=== PATIENT | female | born 1990 | race Caucasian/White ===

== ENCOUNTER 2017-10-03 05:30 | Inpatient (IN) | payer MEDICAID ==
--- NOTE | 2017-10-02 23:44 | GHP ---
[f rep st] PREOP HISTORY AND PHYSICAL DATE OF ADMISSION: 10/03/2017 HISTORY UPON ADMISSION: The patient is a 27-year-old, G1, P0, at 39 weeks' gestation with estimated due date of 10/10/2017, who is presenting for a scheduled primary section due to persistent breech position. The patient has had a persistent breech position since 30 wks. The patient declined external cephalic version. The patient is not having any contractions , bag of water intact, no bleeding. The patient reports good movement. The patient's has been complicated by gestational diabetes with poor blood sugar control until very recently. The patient has been managed by an Endocrine office in [place], and primarily the patient has been on long-acting insulin at night, steadily increasing. The patient recently initiated short- acting insulin before dinner. The patient has had serial ultrasounds, watching growth. There has been reassuring fluid level, and growth has ranged from the 25th to 46th percentile. Primary section has been reviewed with the patient, and risks and benefits discussed. The patient has signed the consent form. CARE: The patient has been with [facility] since 9 weeks' gestation. The patient had a history of anxiety prior to the , but did not have significant worsening through the . The patient's initial ultrasound at 19 weeks did not show all the anatomy adequately, and therefore, this was repeated at 22 weeks, and everything appeared normal. The placenta is left lateral. The patient's screening Glucola was abnormal, and a 3 -hour GTT was abnormal for 2 out of 3 values. Again, the patient has been increased on nighttime NPH and has most recently been on 27 units. She initially added 20 units regular before dinner. The baby was first noted to be breech at 30 weeks' gestation and has remained so throughout the . ALEJANDRA was initially low normal, but had improved to normal range. The patient began twice weekly NST monitoring at 36 weeks' gestation, and this has been reassuring. LABORATORY DATA: Maternal blood type O positive with negative antibody screen. RPR nonreactive. Rubella immune. Hepatitis B surface antigen negative. HIV negative. Standard genetic testing panel was negative. MSAFP is negative. Urinalysis and culture were both negative. Pap smear normal. Gonorrhea and chlamydia negative. Verifi testing was normal. Hematocrit at the lowest was 38%. 3-hour GTT abnormal. GBS culture was negative. PAST MEDICAL HISTORY: Anxiety, but mild and not medicated. History of frequent UTIs in the past, but saw urologist, and workup was negative. FAMILY HISTORY: Depression, a brother who of a suicide, and a sister with depression. ALLERGIES: Sulfa causes rash. CURRENT MEDICATIONS: vitamin, and occasional Tylenol. SOCIAL HISTORY: The patient is single. Has a supportive partner. The patient is a nonsmoker. No alcohol or drug use. 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 PAST SURGICAL HISTORY: Negative. PHYSICAL EXAMINATION: GENERAL: Upon preop, the patient is a well-developed, well-nourished white female in no physical distress. VITAL SIGNS: Patient is clinically afebrile. Blood pressure 122/72. Weight 216 pounds. HEENT: No thyromegaly, no adenopathy. The oropharynx is clear. LUNGS: Clear to auscultation bilaterally. CARDIOVASCULAR: Regular rate and rhythm. ABDOMEN: Gravid with fundal height of 38 cm. heart tones in the 150s with a reactive NST. PELVIC: Deferred. EXTREMITIES: Nontender with mild edema. ASSESSMENT: Intrauterine at 40 weeks' gestation, eusebia breech, gestational diabetes A2, history of anxiety. PLAN: Will proceed with scheduled primary section on 10/03/2017. The patient will receive preoperative antibiotics. /[id number]/MODL MTDD
--- NOTE | 2017-10-03 06:20 | PDHPUP ---
History & Physical Update H&P update statement: This history and physical update is based on an assessment of the patient which was completed after admission or registration (within 24 hours), but prior to the surgery/procedure.
[2017-10-03] MEDS ORDERED: ceFAZolin 2 GM/DEXTROSE 100 ML IV ONE (06:27)
[2017-10-03] MEDS ORDERED: LR 500 ML IV ONE (06:27)
[2017-10-03] MEDS ORDERED: CITRIC ACID/SODIUM CITRATE 30 ML UDCUP PO ONE (06:27)
[2017-10-03 06:39] LABS: PLATELET COUNT 188 10^3/uL (150-400)
[2017-10-03] MEDS ORDERED: ceFAZolin 2 GM/SWFI 2 GM/20 ML SYR IVP ONE (06:45)
[2017-10-03] MEDS ORDERED: fentaNYL 100 MCG/2 ML INJ ONE (07:19)
[2017-10-03] MEDS ORDERED: morphINE PF 5 MG/10 ML INJ ONE (07:20)
[2017-10-03] MEDS ORDERED: ONDANSETRON 4 MG/2 ML VIAL IVP PRN (09:04)
[2017-10-03] MEDS ORDERED: NALOXONE HCL 0.4 MG/ML INJ IVP PRN (09:04)
--- NOTE | 2017-10-03 09:07 | POSTANESTH ---
Post Anesthetic Evaluation Cardiovascular Status: Normal, Stable Respiratory Status: Normal, Stable Level of Consciousness/Mental Status: Can Participate in Eval Pain Control: Adequate, Prn Tx Ordered Nausea/Vomiting Control: Adequate, Prn Tx Ordered Complications Possibly Related to Anesthesia: None Noted
--- NOTE | 2017-10-03 09:07 | PDANEPAE ---
ANE History of Present Illness here for CS for breech ANE Past Medical History - Cardiovascular History Hx Hypertension: No Hx Arrhythmias: No Hx Chest Pain: No Hx Coronary Artery / Peripheral Vascular Disease: No Hx CHF / Valvular Disease: No Hx Palpitations: No - Pulmonary History Hx COPD: No Hx Asthma/Reactive Airway Disease: No Hx Recent Upper Respiratory Infection: No Hx Oxygen in Use at Home: No Hx Sleep Apnea: No Sleep Apnea Screening Result - Last Documented: Negative - Neurologic History Hx Cerebrovascular Accident: No Hx Seizures: No Hx Dementia: No - Endocrine History Endocrine History Comment: gestational DM - Renal History Hx Renal Disorders: No - Liver History Hx Hepatic Disorders: No - Neurological & Psychiatric Hx Hx Neurological and Psychiatric Disorders: No - Cancer History Hx Cancer: No ANE Review of Systems Review of systems is: negative Review of Systems: - Exercise capacity Exercise capacity: >=4 METS ANE Patient History - Allergies Allergies/Adverse Reactions: Sulfa (Sulfonamide Antibiotics) Allergy (Verified 10/03/17 06:23) Rash - Home Medications Home medications: home medication list seen and reviewed Home Medications: Vit27&Calcium/Iron/FA [] 1 tab DAILY 10/03/17 [Last Taken 10/02 11:00] - NPO status NPO Status: no food or drink >8 hours NPO Since - Liquids (Date): 10/02/17 NPO Since - Liquids (Time): 00:00 NPO Since - Solids (Date): 10/02/17 NPO Since - Solids (Time): 19:30 - Anes Hx Anes Hx: no prior problems ANE Labs/Vital Signs - Labs Result Diagrams: 10/03/17 06:15 - Vital Signs Vital Signs: reviewed preoperatively; see RN documention for details Height: 162.56 cm Weight: 97.976 kg ANE Physical Exam - Airway Neck exam: FROM Mallampati Score: Class 1 - Pulmonary Pulmonary: no respiratory distress - Cardiovascular Cardiovascular: regular rate and rhythym - ASA Status ASA Status: II ANE Anesthesia Plan Anesthesia Plan: spinal
[2017-10-03] MEDS ORDERED: MAGNESIUM HYDROXIDE 30 ML UDCUP PO PRN (09:24)
[2017-10-03] MEDS ORDERED: BISACODYL 10 MG SUPP PR PRN (09:24)
[2017-10-03] MEDS ORDERED: POLYETHYLENE GLYCOL 3350 17 GM PKT PO PRN (09:24)
[2017-10-03] MEDS ORDERED: LACTULOSE 20 GM/30 ML UDCUP PO PRN (09:24)
--- NOTE | 2017-10-03 09:29 | POSTOPPROG ---
Post Op Note Date of Operation: 10/03/17 Surgeon: Kellee Marie Time Cycle Operator: Milvia Banks SA Anesthesiologist: Pacheco Patton MD Anesthesia: Spinal Pre-op Diagnosis: IUP at 39 wks, GDM - A2, eusebia breech Post-op Diagnosis: same, delivered Indication: G1, persistent breech since 30 wks, decl ECV, poor glucose control w /insuli Procedure: primary section Findings: nl ut,ov, tubes. clear fluid. minute to deliver head with upward traction Inf/Abcess present in the surg proc area at time of surgery?: No Depth: Organ Space EBL: 500-1000 (1000) Total fluids administered: 1800 Complications: none, cord gases taken Specimen(s): none
--- NOTE | 2017-10-03 09:45 | OBDEL ---
Info Type: Primary Presentation at Delivery: Breech L&D Analgesia/Anesthesia Type: Spinal (with duramorph) GBS+: No - Infant Care Provider Prepress Proofer/ENVIRONMENTAL FIELD SERVICES TECHNICIAN: Jenniffer Suazo (ENVIRONMENTAL FIELD SERVICES TECHNICIAN) Indications for Delivery: Diabetes Gestational Poorly Controlled Vaginal Delivery - Labor and Delivery Cord Gases: Cord Gases Cord Blood PCO2 49.3 mmHg (37-60) 10/03/17 08:14 Cord Base Excess -5.2 mEq/L (-13.6--3.2) 10/03/17 08:14 Cord ABG pH 7.27 (7.10-7.37) 10/03/17 08:14 Cord VBG pH 7.18 (7.20-7.42) L 10/03/17 08:14 Operative Report - Delivery Pre-op Diagnoses: IUP at 39 wks, breech, GDM-A2 Post-op Diagnoses: same, delivered History of Prior Section: No Nulliparous Prior to Delivery: Yes Indications for Current Section: Breech Procedure: Scheduled, Low Transverse Surgeon: Kellee Marie Commercial Intern: Milvia Banks Anesthesiologist: Pacheco Patton Findings: nl ut, tubes, ov. clear fluid. eusebia breech, 1 min for del of head. vigorous after delivery IV Fluid (ml): 1,800 EBL: 1000 Cord Gases: Cord Gases Cord Blood PCO2 49.3 mmHg (37-60) 10/03/17 08:14 Cord Base Excess -5.2 mEq/L (-13.6--3.2) 10/03/17 08:14 Cord ABG pH 7.27 (7.10-7.37) 10/03/17 08:14 Cord VBG pH 7.18 (7.20-7.42) L 10/03/17 08:14 Data THIEN: 10/10/17 Gestational Age: 39 week(s) and 0 day(s) Edge Delivery Date: 10/03/17 Delivery Time: 08:10 Sex of : Female (Suzan Reinoso) Score (1 Min): 8 Score (5 Min): 9 ICD10 Worksheet Patient Problems: Problems Problem Status Onset Gestational diabetes Acute delivery delivered Acute Breech presentation Acute
[2017-10-03] MEDS: LR 1,000 ML IV SCH ×2 (10:45→18:47)
[2017-10-03] MEDS: KETOROLAC 30 MG/1 ML SDV IVP SCH ×2 (11:56→18:45)
--- NOTE | 2017-10-03 13:26 | GOP ---
[f rep st] OPERATIVE REPORT DATE OF OPERATION: 10/03/2017 SURGEON: Kellee Marie MD ASH COLLECTOR: BEN Wallis ANESTHESIA: Spinal anesthetic with Duramorph placement for postoperative pain management. ANESTHESIOLOGIST: Pacheco Patton MD PREOPERATIVE DIAGNOSIS: Intrauterine at 39 weeks, gestational diabetic A2, eusebia breech. POSTOPERATIVE DIAGNOSIS: Intrauterine at 39 weeks, gestational diabetic A2, eusebia breech, delivered. PROCEDURE PERFORMED: Primary delivery. FINDINGS: INDICATIONS: The patient is a 27-year-old, G1, P0, at 39 weeks gestation, scheduled for primary due to persistent breech presentation since approximately 30 weeks. Patient declined external cephalic version. The patient's has been complicated by gestational diabetes and the patient has had sugar management through the [facility] office. The patient has had poor glucose control until recently. She has only been on NPH at night with steadily increasing levels, and recently was advised to add Regular Insulin before dinner. Serial ultrasounds have been done and the baby' s estimated weight has varied between 25 and 49 percentile. Fluid level has been normal. The patient was advised as to the risks and benefits of delivery and the consent form signed. DESCRIPTION OF PROCEDURE: The patient was taken to the operating room, where following satisfactory spinal anesthesia, the patient was placed in supine position with right hip displacement. A Brumfield catheter was placed within the bladder and draining clear urine. The patient had on SCDs on her lower extremities for DVT prophylaxis. The patient received a dose of antibiotics preoperatively. The patient's skin was prepped and the patient draped in usual sterile manner for abdominal procedures. A Pfannenstiel incision was made in the low abdomen and extended sharply down to the level of the fascia. The fascia was incised in the midline and extended sharply bilaterally. The fascia was elevated off the underlying rectus muscles superiorly and inferiorly. The rectus muscles were in the midline and gently pulled to each side. The parietal perineum was entered easily and also pulled to the sides. The visceral perineum was reflected off the lower uterine segment sharply to developed the bladder flap. Hysterotomy was made in the low-transverse segment and extended sharply bilaterally with bandage scissors. Upon amniotomy, there was clear fluid noted. The breech was noted right at the hysterotomy, and with fundal pressure, the hips and pelvis were delivered through the hysterotomy without any problems. Continued fundal pressure brought the baby up past the knees, and each leg was flexed and extended out through the incision without any problems. Continued fundal pressure and direction of the baby with the baby wrapped with a moist towel, brought the baby past the level of the scapula. The arms were flexed and rotated across the chest and delivered through the hysterotomy with rotation of the body. The baby then was elevated for delivery of the head. There was approximately a minute to deliver the head atraumatically. The baby was bulb suctioned after delivery and the cord was clamped and cut, and the baby was handed off the field for evaluation with the nurse practitioner. The baby was vigorous after delivery. An additional section of cord blood was obtained for gases. The placenta was manually extracted off the anterior of the uterus intact. There appeared to be a succinturate lobe on the placental surface and it was removed in entirety. The uterine tone returned quickly. The uterus was externalized for closure. The interior was wiped with a laparotomy pad to ensure there were no retained membranes. The incision edges were inspected and there were no extensions. The incision was closed with a running interlocking layer of 0 Vicryl followed by an imbricating stitch of the same suture. This provided good hemostasis. Pressure was applied to this area while inspection was performed. The posterior cul-de-sac was irrigated and blood clots removed. The uterus, tubes and ovaries appeared normal. The left fundal portion of the uterus was thinner , but tone returned well in this area. An additional inspection was made in the lower uterine segment and there was good hemostasis of the incision. The uterus was replaced within the abdominal cavity and each pelvic gutter was irrigated and suctioned for blood clots. One final inspection in the lower uterine segment was made and there was good hemostasis. Bovie cautery was used on small areas of capillary bleeding. The visceral peritoneal edge was hemostatic. The rectus muscles were inspected and they were hemostatic. The rectus muscles were reapproximated in the midline with a horizontal mattress type stitch of 3-0 Vicryl. The fascia then was closed with a running layer of 0 Vicryl. Wiley fascia was closed with a running layer of 3-0 Vicryl. Subcutaneous tissue was irrigated and Bovie cautery used where needed. Subcuticular skin edge was closed with a running layer of 4-0 Vicryl. Mastisol and Steri-Strips were applied over the incision and then Telfa and 4x4s were used for a dressing. The uterine fundus was massaged and blood clots allowed to escape vaginally. There was minimal bleeding. Brumfield catheter continued to drain clear urine. The patient tolerated the procedure well, was taken out of the operating room and taken to the recovery room in stable condition. Total blood loss estimated at 1000 mL. IV fluids were 1800 mL. The baby was delivered at 0810 hours with Apgars 8 and 9, a viable female named Suzan. /[id number]/MODL MTDD
--- NOTE | 2017-10-03 17:44 | OBPP ---
Progress Note Assessment/Plan: Assessment: POD 1/2 s/p primary c/s - breech PT SEEN APPROX NOON - NOTE WRITTEN LATE GDM - A2 Plan: routine care 10/03/17 17:40 Subjective/ Course: 10/03/17 17:44 Pt doing well. Baby has been latching well. no pain. no nausea. sitting up BF when seen. Just itchy - bld has been light. mancia in place. ben reg water Objective: 10/03/17 06:15 Patient ABO/Rh O POSITIVE 10/03/17 06:15 Temp Pulse Resp BP Pulse Ox 36.3 C 81 17 110/75 95 10/03/17 15:00 10/03/17 15:00 10/03/17 15:00 10/03/17 15:00 10/03/17 15:00 Uterine Position/Fundal Height: At Umbilicus Uterine Tone: Firm Physical Exam - Physical Exam Abdomen: non-tender, soft, other (FF at umb, bandage CDI) Extremities: non-tender, pedal edema (minimal) Skin: normal color, warm/dry Neuro/Psych: alert, normal mood/affect
[2017-10-04] MEDS: SENNOSIDES/DOCUSATE SODIUM TAB PO SCH ×4 (00:53→20:05)
[2017-10-04] MEDS: KETOROLAC 30 MG/1 ML SDV IVP SCH ×2 (00:54→07:45)
[2017-10-04] MEDS: HYDROCODONE/APAP 5/325 TAB PO PRN ×5 (01:49→23:28)
--- NOTE | 2017-10-04 12:38 | OBPP ---
Progress Note Assessment/Plan: Assessment: 27yo s/p Primary C/s (breech) POD#1 anemia Plan: routine post op care start PO iron QD ambulate/void increase water intake cont plan d/c in 24-48 hours 10/04/17 12:49 10/04/17 12:53 Subjective/ Course: 10/03/17 17:44 Pt doing well. Baby has been latching well. no pain. no nausea. sitting up BF when seen. Just itchy - bld has been light. mancia in place. ben reg water 10/04/17 12:50 Patient doing well. She denies any severe pain or heavy bleeding. She is ambulating without difficulty. She has not voided yet, Mancia was removed a couple hours ago. We discussed things to promote void. She is breast-feeding without difficulty. FOB at bedside and supportive. Objective: 10/04/17 02:00 Patient ABO/Rh O POSITIVE 10/03/17 06:15 Temp Pulse Resp BP Pulse Ox 37.1 C 98 16 120/82 H 94 10/04/17 05:56 10/04/17 05:56 10/04/17 05:56 10/04/17 05:56 10/04/17 05:56 Uterine Position/Fundal Height: Umbilicus -1, Midline Uterine Tone: Firm Physical Exam - Physical Exam Neck: supple Respiratory: lungs clear, normal breath sounds Cardiac/Chest: regular rate, rhythm Abdomen: non-tender, soft, flatus, incision (C/D/I) Skin: normal color, warm/dry Neuro/Psych: no motor/sensory deficits, alert, normal mood/affect, oriented x 3
[2017-10-04] MEDS: IBUPROFEN 600 MG TAB PO PRN ×2 (13:49→20:05)
[2017-10-05] MEDS: HYDROCODONE/APAP 5/325 TAB PO PRN ×5 (02:29→20:33)
[2017-10-05] MEDS: IBUPROFEN 600 MG TAB PO PRN ×4 (02:29→22:23)
[2017-10-05] MEDS: IRON POLYSAC/IRON HEME 28 MG TAB PO SCH (09:31)
[2017-10-05] MEDS: SENNOSIDES/DOCUSATE SODIUM TAB PO SCH ×2 (09:31→23:11)
[2017-10-05 17:58] VITALS: RESP 18
--- NOTE | 2017-10-05 18:22 | OBPP ---
Progress Note Assessment/Plan: Assessment: POD 2 s/p primary c/s - breech GDM - A2 Plan: routine care 10/03/17 17:40 10/05/17 18:19 Subjective/ Course: 10/03/17 17:44 Pt doing well. Baby has been latching well. no pain. no nausea. sitting up BF when seen. Just itchy - bld has been light. mancia in place. ben reg water 10/04/17 12:50 Patient doing well. She denies any severe pain or heavy bleeding. She is ambulating without difficulty. She has not voided yet, Mancia was removed a couple hours ago. We discussed things to promote void. She is breast-feeding without difficulty. FOB at bedside and supportive. 10/05/17 18:19 Pt glad for help with - baby's latch is improving - was shallow and pt 's nipples very tender and bruised - using gel pads and lanolin. improving. mild nausea after iron but resolved. urinating fine. pain controlled well with [place]/ibu. no BM yet. amb well. Objective: 10/04/17 02:00 Patient ABO/Rh O POSITIVE 10/03/17 06:15 Temp Pulse Resp BP Pulse Ox 36.6 C 78 18 126/85 H 95 10/05/17 16:57 10/05/17 16:57 10/05/17 16:57 10/05/17 16:57 10/05/17 16:57 Uterine Position/Fundal Height: Umbilicus -1 Uterine Tone: Firm Physical Exam - Physical Exam Abdomen: non-tender, soft, other (FF at umb -1, lochia scant, fine rash on abd in distribution of adhesive drape from surgery - non symptomatic) Extremities: non-tender, pedal edema (minimal) Skin: normal color, warm/dry Neuro/Psych: alert, normal mood/affect
[2017-10-06] MEDS: IBUPROFEN 600 MG TAB PO PRN ×2 (04:17→10:49)
[2017-10-06] MEDS: IRON POLYSAC/IRON HEME 28 MG TAB PO SCH (08:56)
[2017-10-06] MEDS: SENNOSIDES/DOCUSATE SODIUM TAB PO SCH (08:56)
[2017-10-06] MEDS: HYDROCODONE/APAP 5/325 TAB PO PRN (08:56)
[2017-10-06 09:27] VITALS: BP 127/86; PULSE 85; TEMP 98.3; O2SAT 96
--- NOTE | 2017-10-06 10:50 | OBPP ---
Progress Note Assessment/Plan: Assessment:nipples broken down. Scab to both. apno lanolin ff@u scant rubra lochia incision approximated no ss of infection, ss in place + gas + void elevated bp anemic Plan: discharge to home with instructions depression, ss infection, bleeding pattern over the next 6 weeks pericare, rest, walking no routine exercise, pain management, ways to assist with breakdown, elevated bp fu Friday 2 weeks 4 weeks and 6 weeks pelvic rest, handwashing, contraception 10/06/17 10:38 Subjective/ Course: 10/03/17 17:44 Pt doing well. Baby has been latching well. no pain. no nausea. sitting up BF when seen. Just itchy - bld has been light. mancia in place. ben reg water 10/04/17 12:50 Patient doing well. She denies any severe pain or heavy bleeding. She is ambulating without difficulty. She has not voided yet, Mancia was removed a couple hours ago. We discussed things to promote void. She is breast-feeding without difficulty. FOB at bedside and supportive. 10/05/17 18:19 Pt glad for help with - baby's latch is improving - was shallow and pt 's nipples very tender and bruised - using gel pads and lanolin. improving. mild nausea after iron but resolved. urinating fine. pain controlled well with [place]/ibu. no BM yet. amb well. 10/06/17 10:37 Doing well denies difficulties. States beginning to go better. " I think my milk is in" Pain fairly well managed. Objective: 10/04/17 02:00 Patient ABO/Rh O POSITIVE 10/03/17 06:15 Temp Pulse Resp BP Pulse Ox 36.8 C 85 18 127/86 H 96 10/06/17 08:30 10/06/17 08:30 10/06/17 08:30 10/06/17 08:30 10/06/17 08:30 Uterine Position/Fundal Height: At Umbilicus Uterine Tone: Firm Physical Exam - Physical Exam General Appearance: WD/WN, alert, no apparent distress Respiratory: chest non-tender, lungs clear, normal breath sounds Cardiac/Chest: regular rate, rhythm Abdomen: normal bowel sounds Extremities: normal range of motion, Alan's sign (negative bilaterally) DTR- Lower Extremities: Knee (R): 1+, Knee (L): 1+ (no clonus) Skin: normal color, warm/dry Neuro/Psych: no motor/sensory deficits, alert, normal mood/affect, oriented x 3
--- NOTE | 2017-10-06 10:57 | OBGCSDC ---
General Delivery Information - General Info : 1 Para: 1 Abortions: 0 Type: Primary L&D Analgesia/Anesthesia Type: Spinal Admission Date: 10/03/17 Labs: Patient ABO/Rh O POSITIVE 10/03/17 06:15 Hct 35.0 % (38.0-47.0) L 10/04/17 02:00 - Hospital Course Antepartum: routine care with [facility]. WNL care. 10/06/17 10:53 G!PO routine care with [facility] since early . No history other than patient breech. 10/06/17 10:56 : 10/03/17 17:44 Pt doing well. Baby has been latching well. no pain. no nausea. sitting up BF when seen. Just itchy - bld has been light. mancia in place. ben reg water 10/04/17 12:50 Patient doing well. She denies any severe pain or heavy bleeding. She is ambulating without difficulty. She has not voided yet, Mancia was removed a couple hours ago. We discussed things to promote void. She is breast-feeding without difficulty. FOB at bedside and supportive. 10/05/17 18:19 Pt glad for help with - baby's latch is improving - was shallow and pt 's nipples very tender and bruised - using gel pads and lanolin. improving. mild nausea after iron but resolved. urinating fine. pain controlled well with [place]/ibu. no BM yet. amb well. 10/06/17 10:37 Doing well denies difficulties. States beginning to go better. " I think my milk is in" Pain fairly well managed. - Delivery Providers Surgeon: Kellee Marie Drone Software Development Engineer: Milvia Banks Anesthesiologist: Pacheco Patton - Delivery Indications for Current Section: Breech Surgical Procedures: Scheduled, Low Transverse EBL: 1000 [place] Data THIEN: 10/10/17 Gestational Age: 39 week(s) and 3 day(s) Edge Delivery Date: 10/03/17 Delivery Time: 08:10 Sex of Infant: Female Score (1 Min): 8 Score (5 Min): 9 Discharge Information - Discharge Information Condition: Good Instruction/Follow Up: Two Weeks, Four Weeks, Six Weeks (early visit on friday for a BP check)
== END 2017-10-06 14:15 | disposition home or self-care (01) | DRG 766 ==
LOC: FLD 05:30 → FOB 11:47
PROVIDERS: ADMIT Obstetrics & Gynecology; ATTEND Obstetrics & Gynecology
PROC: 10D00Z1 Extraction of Products of Conception, Low, Open Approach (ICD-10-PCS; principal; 2017-10-03)
DX: O32.1XX0 Maternal care for breech presentation, not applicable or unspecified (principal); O24.414 Gestational diabetes mellitus in pregnancy, insulin controlled; Z3A.39 39 weeks gestation of pregnancy; Z37.0 Single live birth
CPT/HCPCS: J0690; J1200; J1885; J2274; J3010

== ENCOUNTER 2018-01-20 09:46 | Observation (INO) | payer MEDICAID ==
[2018-01-20] MEDS ORDERED: ONDANSETRON 4 MG/2 ML VIAL ONE ×2 (10:57→16:17)
[2018-01-20] MEDS ORDERED: ONDANSETRON 4 MG/2 ML VIAL IVP ONE (11:01)
[2018-01-20] MEDS ORDERED: NS 1,000 ML IV ONE ×2 (11:01→14:57)
[2018-01-20 11:18] LABS: PLATELET COUNT 288 10^3/uL (150-400)
[2018-01-20] MEDS ORDERED: IOPAMIDOL (ISOVUE-300) 100 ML BTL ONE (12:45)
--- NOTE | 2018-01-20 13:49 | EDPHY ---
H & P Smoking Status: Never smoked Time Seen by Provider: 01/20/18 11:17 HPI/ROS: CHIEF COMPLAINT: Abdominal pain HISTORY OF PRESENT ILLNESS: 27-year-old female presents to the emergency department with abdominal pain and cramping over the last 1 week or more. She has also had associated diarrhea. She has had several episodes of loose stools per day. No watery diarrhea per se. No blood in her stool. No recent travel. No known ill contacts. No treatment at home. She is almost 4 months. She has felt feverish and chilled. She states that her pain became acutely worse last night and then force herself to vomit. She thought she felt a bit better but then her pain returned. No urinary symptoms. No back pain. No chest pain or difficulty breathing. No reported trauma. REVIEW OF SYSTEMS: Constitutional: No fever, no chills. Eyes: No double or blurry vision. ENT: No sore throat. Respiratory: No cough, no shortness of breath. Cardiac: No chest pain. Gastrointestinal: As above. Genitourinary: No dysuria. Musculoskeletal: No neck or back pain. Skin: No rashes. Neurological: No headache. (Basia Goyal) Past Medical/Surgical History: Post almost 4 months ago, anxiety, urinary tract infections (Basia Goyal) Social History: Single (Basia Goyal) Physical Exam: General Appearance: Alert, no distress. Afebrile. Eyes: Pupils equal and round. Extraocular motions are all intact. ENT: Mouth: Mucous membranes moist. Respiratory: No wheezing, rhonchi, or rales, lungs are clear to auscultation. Cardiovascular: Regular rate and rhythm. Gastrointestinal: Abdomen is soft. Tenderness with palpation especially the suprapubic area as well as in the right lower quadrant. No rebound, guarding or masses noted. No CVA tenderness bilaterally. Neurological: Alert and oriented x 3, cranial nerves II through XII grossly intact Skin: Warm and dry, no rashes. Musculoskeletal: Nontender to palpate along the cervical, thoracic or lumbar spine. Neck is supple. Extremities: Full range of motion and no peripheral edema. Psychiatric: Patient is oriented X 3, there is no agitation. (Basia Goyal) Constitutional: Initial Vital Signs Temperature (C) 36.6 C 01/20/18 09:52 Heart Rate 89 01/20/18 09:52 Respiratory Rate 16 01/20/18 09:52 Blood Pressure 133/87 H 01/20/18 09:52 O2 Sat (%) 96 01/20/18 09:52 O2 Delivery Mode Room Air Allergies/Adverse Reactions: Sulfa (Sulfonamide Antibiotics) Allergy (Verified 01/20/18 09:55) Rash Home Medications: Medication Instructions Recorded Ranitidine HCl [Zantac 75] 75 mg PO BID PRN 01/20/18 Acetaminophen [Tylenol ES 500 mg 1,000 mg PO Q8H tab 01/21/18 (*)] HYDROmorphone HCL [Dilaudid 2 mg 2 - 4 mg PO Q4H #10 tab 01/21/18 (*)] Ketorolac Tromethamine [Toradol 15 10 mg PO Q6HRS #16 vial 01/21/18 mg/ml Inj (*)] Medical Decision Making ED Course/Re-evaluation: 27-year-old female presents emergency department with abdominal pain. On examination the patient has pain especially in the right lower quadrant. There is no rebound, guarding or masses noted. A blood cell count is 11.5. I recommended CT scan of the abdomen and pelvis with IV contrast the patient verbalized understanding and agreed. CT scan was suspicious for acute appendicitis measuring 9 mm. I spoke with the on-call surgeon, Dr. Gregory, who came to evaluate the patient and the patient will be taken to the operating room. Patient was given 1 g of IV ceftriaxone and 500 mg of IV metronidazole in the emergency department. (Basia Goyal) Differential Diagnosis: Including but not limited to acute appendicitis, dehydration, electrolyte abnormality, pyelonephritis, kidney stone, urinary tract infection, ovarian cyst , ovarian torsion, ectopic (Basia Goayl) Other Provider: The patient was evaluated and managed by the Physician Customer Specialist. I discussed the patient's presentation and course with the midlevel provider with them and agree with the evaluation. My co-signature indicates that I have reviewed this chart and I agree with the findings and plan of care as documented. I am the secondary supervising physician. (Jaja Rivas) - Data Points Laboratory Results: Laboratory Results 01/20/18 11:05 01/20/18 11:05 Medications Given: Discontinued Medications Acetaminophen (Tylenol) 1,000 mg PO Q8H KIMMY Stop: 07/19/18 18:33 Last Admin: 01/21/18 10:26 Dose: 1,000 mg Cefazolin Sodium (Ancef Syringe) Confirm Administered Dose 2 gm .ROUTE .STK-MED ONE Stop: 01/20/18 15:45 Last Admin: 01/20/18 18:56 Dose: Not Given Famotidine (Pepcid) 20 mg PO DAILY KIMMY Stop: 07/20/18 08:59 Last Admin: 01/21/18 07:52 Dose: 20 mg Fentanyl (Sublimaze) 25 - 100 mcg IVP Q5M PRN PRN Reason: PACU, IMMEDIATE Pain control Stop: 01/20/18 18:29 Last Admin: 01/20/18 17:40 Dose: 50 mcg Heparin Sodium (Porcine) (Heparin Sc Injection) Confirm Administered Dose 5,000 unit .ROUTE .STK-MED ONE Stop: 01/20/18 15:45 Last Admin: 01/20/18 16:47 Dose: 5,000 unit Hydromorphone HCl (Dilaudid) 0.1 - 0.4 mg IVP Q10M PRN PRN Reason: PACU, PAIN Stop: 01/20/18 18:29 Last Admin: 01/20/18 18:10 Dose: 0.2 mg Hydromorphone HCl (Dilaudid) 0.2 - 0.4 mg IVP Q1HR PRN PRN Reason: Pain, Breakthrough Stop: 01/30/18 18:04 Last Admin: 01/21/18 06:07 Dose: 0.4 mg Sodium Chloride (Ns) 1,000 mls @ 0 mls/hr IV ONCE ONE PRN Reason: Wide Open Stop: 01/20/18 11:02 Last Admin: 01/20/18 11:02 Dose: 1,000 mls Ceftriaxone Sodium/Dextrose (Rocephin 1 Gm (Premix)) 50 mls @ 100 mls/hr IV EDNOW ONE PRN Reason: Protocol Stop: 01/20/18 15:20 Last Admin: 01/20/18 15:00 Dose: 50 mls Metronidazole/Sodium Chloride (Flagyl 500 Mg (Premix)) 100 mls @ 100 mls/hr IV EDNOW ONE PRN Reason: Protocol Stop: 01/20/18 15:50 Last Admin: 01/20/18 15:03 Dose: 100 mls Sodium Chloride (Ns) 1,000 mls @ 0 mls/hr IV ONCE ONE PRN Reason: Wide Open Stop: 01/20/18 14:58 Last Admin: 01/20/18 15:04 Dose: Not Given Lactated Ringer's (Lr) 1,000 mls @ 0 mls/hr IV ONCE ONE PRN Reason: As Directed Stop: 01/20/18 15:42 Last Admin: 01/20/18 18:56 Dose: Not Given Lactated Ringer's (Lr) 1,000 mls @ 100 mls/hr IV CONT KIMMY Stop: 07/19/18 18:29 Last Admin: 01/20/18 19:40 Dose: 1,000 mls Ketorolac Tromethamine (Toradol) 30 mg IVP Q6HRS KIMMY Stop: 01/26/18 00:00 Last Admin: 01/21/18 11:55 Dose: 30 mg Midazolam HCl (Versed) 2 mg IVP ONCE ONE Stop: 01/20/18 16:14 Last Admin: 01/20/18 16:20 Dose: 2 mg Ondansetron HCl (Zofran) 4 mg IVP EDNOW ONE Stop: 01/20/18 11:02 Last Admin: 01/20/18 11:02 Dose: 4 mg Ondansetron HCl (Zofran) 4 mg IVP Q4HRS PRN PRN Reason: *Nausea &/or Vomiting Stop: 01/21/18 18:04 Last Admin: 01/21/18 06:12 Dose: 4 mg Pantoprazole Sodium (Protonix) 40 mg IVP EDNOW ONE Stop: 01/20/18 15:11 Last Admin: 01/20/18 15:26 Dose: 40 mg Departure - Departure Disposition: To OP Cath/Surgery Clinical Impression: Acute appendicitis Qualifiers: Acute appendicitis type: with localized peritonitis Qualified Code(s): K35.3 - Acute appendicitis with localized peritonitis Condition: Good
[2018-01-20] MEDS ORDERED: PANTOPRAZOLE SODIUM 40 MG VIAL IVP ONE (15:10)
[2018-01-20] MEDS ORDERED: LR 1,000 ML IV ONE (15:41)
[2018-01-20] MEDS ORDERED: HEPARIN 5,000 UNIT/0.5 ML INJ ONE (15:44)
[2018-01-20] MEDS ORDERED: ceFAZolin 1 GM/5 ML SYR ONE (15:44)
--- NOTE | 2018-01-20 15:56 | GHP ---
[f rep st] PREOP HISTORY AND PHYSICAL DATE OF ADMISSION: 01/20/2018 ADMITTING DIAGNOSES: 1. Abdominal pain, probable appendicitis. 2. Right ovarian cyst. HISTORY: The patient is a 27-year-old female. She gave by in September of this year. Approximately 11 days ago she had the onset of severe abdominal pain, which was in the center of her abdomen. It was associated with nausea, fevers and chills. She attributed it to a gastroenteritis, as several of her friends had a very similar presentation. Over the next week, she had round random episodes of abdominal discomfort. Her nausea was continuous. She did, however, have no change in he r appetite. She has been having more loose stools over the past week. Last night she had severe fev ers and chills again. She is hungry at this point. She has had no antibiotics in the last 6 months or travelled outside [facility]. There is no history of recent upper respiratory tract infection. Aside from loose stool in the last 10 days, no other episodes of antecedent diarrhea. There is no history of inflamma tory bowel disease. Her was because her baby was breech. SOCIAL HISTORY: She is not at this time. She smoked from ages 14 to last year at a ra te of 1/3 of a pack a day. She takes 1-2 g of marijuana a day. She drinks 2-3 nights a week and dri nks to get drunk. ALLERGIES: There is a history of allergy to sulfa as manifested by a rash. PAST MEDICAL HISTORY: She does have GERD on a regular daily basis and does take Zantac. No rheumati c fever, tuberculosis, hepatitis, or transfusions. REVIEW OF SYSTEMS: Last menstrual period started 2 weeks ago. She has dental caps and periodontal d isease. Review of systems is otherwise quite negative. No limits on her activities. No history of steroid use. PHYSICAL EXAMINATION: GENERAL: She is awake, alert, seen sitting up on the ER gurney in room 25. S he is awake, alert, and oriented. She is very pleasant. NEURO: [place] Coma is 15. There are no f ocal lateralizing neurologic findings. HEAD: Unremarkable. NECK: Unremarkable. There is no enlar gement of her thyroid. LYMPHATICS: There is no cervical, supraclavicular, axillary or inguinal lymp hadenopathy. BACK: Unremarkable. LUNGS: Clear to auscultation. CARDIAC: Shows S1 and S2 to be n ormal. Normal split of S2 without murmurs, rubs, or gallops. ABDOMEN: Tender with cough just infer ior and slightly to the right of the umbilicus. That is 5 on a scale of 1-10. To palpation left upp er quadrant is 1, left mid abdomen is 1, left lower quadrant is 1, epigastrium is 1, periumbilical ar ea is 2, suprapubic area is 3, right upper quadrant is 1, right mid abdomen is 1, right lower quadran t is 3-4. She does have normoactive bowel sounds. Psoas and obturator signs are negative. LABORATORY: Her white blood count is 11.5 with 76.3% neutrophils, hematocrit is 49. Beta hCG is neg ative. Her AST is 59, her ALT is 149. I feel these are probably related to her alcohol consumption. Urine is unremarkable. Her CT does show an appendicitis with a minimal thickening of her appendice al wall. There is some periappendiceal smudging near the cecum. She is seen to have a right ovarian cyst. There is no fluid in the pelvis. ASSESSMENT AND PLAN: We have had a long discussion, detailing options, including going home, going h ome with antibiotics, staying overnight with IV antibiotics, removing her appendix. She wished to pr oceed with a laparoscopic appendectomy for definitive diagnosis. I will make those arrangements. /[id number]/MODL
[2018-01-20] MEDS ORDERED: MIDAZOLAM 2 MG/2 ML VIAL IVP ONE (16:13)
--- NOTE | 2018-01-20 16:13 | PDANEPAE ---
ANE History of Present Illness norman MCNAMARA Past Medical History - Cardiovascular History Hx Hypertension: No Hx Arrhythmias: No Hx Chest Pain: No Hx Coronary Artery / Peripheral Vascular Disease: No Hx CHF / Valvular Disease: No Hx Palpitations: No - Pulmonary History Hx COPD: No Hx Asthma/Reactive Airway Disease: No Hx Recent Upper Respiratory Infection: No Hx Oxygen in Use at Home: No Hx Sleep Apnea: No - Neurologic History Hx Cerebrovascular Accident: No Hx Seizures: No Hx Dementia: No - Endocrine History Hx Diabetes: No Endocrine History Comment: gestational DM - Renal History Hx Renal Disorders: No - Liver History Hx Hepatic Disorders: No - Neurological & Psychiatric Hx Hx Neurological and Psychiatric Disorders: No - Cancer History Hx Cancer: No ANE Review of Systems Review of systems is: negative Review of Systems: - Exercise capacity Exercise capacity: >=4 METS ANE Patient History - Allergies Allergies/Adverse Reactions: Sulfa (Sulfonamide Antibiotics) Allergy (Verified 01/20/18 09:55) Rash - Home Medications Home Medications: Zantac 01/20/18 [Last Taken 01/19/18] - NPO status NPO Status: no food or drink >8 hours NPO Since - Liquids (Date): 01/20/18 NPO Since - Liquids (Time): 09:00 NPO Since - Solids (Date): 01/19/18 NPO Since - Solids (Time): 20:00 - Anes Hx Anes Hx: no prior problems - Smoking Hx Smoking Status: Never smoked Marijuana use: Yes - Alcohol Use Alcohol Use: Heavy (750mL 2-3 times/wk) ANE Labs/Vital Signs - Labs Result Diagrams: 01/20/18 11:05 01/20/18 11:05 - Vital Signs Vital Signs: reviewed preoperatively; see RN documention for details Blood Pressure: 128/74 Heart Rate: 80 Respiratory Rate: 16 O2 Sat (%): 96 Height: 165.1 cm Weight: 90.718 kg ANE Physical Exam - Airway Neck exam: FROM Mallampati Score: Class 2 Mouth exam: normal dental/mouth exam - Pulmonary Pulmonary: no respiratory distress - Cardiovascular Cardiovascular: regular rate and rhythym - ASA Status ASA Status: II, E ANE Anesthesia Plan Anesthesia Plan: general endotracheal anesthesia
[2018-01-20] MEDS ORDERED: MIDAZOLAM 2 MG/2 ML VIAL ONE (16:15)
[2018-01-20] MEDS ORDERED: fentaNYL 100 MCG/2 ML INJ ONE ×4 (16:16→17:34)
[2018-01-20] MEDS ORDERED: PROPOFOL 200 MG/20 ML VIAL ONE ×2 (16:16)
[2018-01-20] MEDS ORDERED: LIDOCAINE 2% 5 ML SDV ONE (16:16)
[2018-01-20] MEDS ORDERED: ROCURONIUM 50 MG/5 ML VIAL ONE (16:16)
[2018-01-20] MEDS ORDERED: KETOROLAC 30 MG/1 ML SDV ONE (16:17)
[2018-01-20] MEDS ORDERED: DEXAMETHASONE 4 MG/ML VIAL ONE (16:17)
[2018-01-20] MEDS ORDERED: SUGAMMADEX SODIUM 200 MG/2 ML VIAL IVP ONE (17:00)
[2018-01-20] MEDS ORDERED: fentaNYL 100 MCG/2 ML INJ IVP PRN (17:29)
[2018-01-20] MEDS ORDERED: PROMETHAZINE HCL 25 MG/ML INJ IVP PRN (17:29)
[2018-01-20] MEDS ORDERED: MEPERIDINE 25 MG/0.5 ML AMP IVP PRN (17:29)
[2018-01-20] MEDS ORDERED: ONDANSETRON 4 MG/2 ML VIAL IVP PRN (17:29)
[2018-01-20] MEDS ORDERED: HYDROCODONE/APAP 5/325 TAB PO PRN (17:29)
[2018-01-20] MEDS ORDERED: NALOXONE HCL 0.4 MG/ML INJ IVP PRN (17:29)
[2018-01-20] MEDS ORDERED: HYDROmorphONE/DILAUDID 1 MG/ML INJ ONE (17:38)
--- NOTE | 2018-01-20 17:39 | POSTOPPROG ---
Post Op Note Date of Operation: 01/20/18 Surgeon: Marty Gregory Anesthesia: GET(General Endotracheal) Pre-op Diagnosis: appendicitis Post-op Diagnosis: appendicitis, small anterior abdominal wall hernia Indication: appendicitis Procedure: laparoscopic appendectomy, release of fat from anterior abdominal wall Findings: appendicitis, small anterior abdominal wall hernia Inf/Abcess present in the surg proc area at time of surgery?: No EBL: Minimal Total fluids administered: 400cc Complications: none Specimen(s): appendix
[2018-01-20] MEDS: HYDROmorphONE/DILAUDID 2 MG/ML INJ IVP PRN ×3 (17:50→18:10)
[2018-01-20] MEDS ORDERED: LR 1,000 ML IV SCH (18:30)
[2018-01-20] MEDS: ACETAMINOPHEN 500 MG TAB PO SCH (19:44)
[2018-01-20] MEDS: HYDROmorphONE/DILAUDID 1 MG/ML INJ IVP PRN ×3 (19:44→23:08)
--- NOTE | 2018-01-20 20:43 | GOP ---
[f rep st] OPERATIVE REPORT DATE OF OPERATION: 01/20/2018 SURGEON: Marty Gregory MD PREOPERATIVE DIAGNOSIS: Appendicitis. POSTOPERATIVE DIAGNOSIS: 1. Appendicitis with omental fat entrapped in the prior anterior abdominal wall section inc ision repair and closure. 2. Right ovarian cyst. PROCEDURE PERFORMED: Laparoscopic appendectomy with release of anterior wall abdominal fat. FINDINGS: Appendicitis with fat trapped in the anterior abdominal wall closure. Right ovarian cyst. INDICATIONS: Appendicitis. DESCRIPTION OF PROCEDURE: The patient was placed on the operating table in supine position. After i nduction of adequate general endotracheal anesthesia, the patient's abdomen was clipped, prepped, and draped. Note is made she had previously emptied her bladder. A surgical time-out was carried out, and agreed to by all members of the operative team. A curvilinear incision was planned at the umbilicus. A transverse incision was planned in the midpoi nt of the prior incision. An oblique incision was placed in the left lower quadrant in [place] e with the incision. The skin was incised at all 3 sites. The dermis was controlled with Bovie electrocautery. Dissection was continued at the umbilical site down to the anterior rectus she ath. This was elevated between Allis clamps, and incised in the midline. Pursestring of #0 PDS was placed. The peritoneum was carefully entered, care taken to make sure there was no injury to subjacent bowel. Subjacent bowel was not adherent to the prior incision. The 11/12 mm Esau trocar was positioned. Intra-abdominal insufflation was carried out to 15 mmHg. Patient was placed in Trendelenburg. She was rotated 5 degrees to the left. A left lower quadrant 5 mm port was placed under direct vision, as was the suprapubic 5 mm port. Janet tographic documentation was carried out of the ovaries. The fat adherent to the anterior abdominal w all was carefully, with gentle traction, released using a grasper. The right lower quadrant was care fully explored. The appendix was identified and elevated with an Endo Allis. Mesoappendix was divid ed with the Harmonic scalpel down to the level of the appendiceal junction with the cecum. This was transected with 1 application of a 35 mm Endo-ELSA stapler. The specimen was placed in EndoCatch bag and delivered. Irrigation with heparin- and Ancef-containing irrigant was carried out. The appendix was unruptured. Ports removed under direct vision. Pneumoperitoneum had been released. An inverted simple suture of #0 PDS was placed in the midline of the infraumbilical midline fascial incision, and tied. The pu rsestring was now tied. Hemostasis was checked, and found to be excellent. Inverted simple sutures of #4-0 Vicryl were used to close the dermis. The skin was closed with Dermabond. The patient was t ransferred to recovery in stable and satisfactory condition. /[id number]/MODL
[2018-01-20] MEDS: ONDANSETRON 4 MG/2 ML VIAL IVP PRN (21:31)
[2018-01-21] MEDS: KETOROLAC 15 MG/1 ML SDV IVP SCH ×3 (00:23→11:55)
[2018-01-21] MEDS: ACETAMINOPHEN 500 MG TAB PO SCH ×2 (02:23→10:26)
[2018-01-21] MEDS: HYDROmorphONE/DILAUDID 1 MG/ML INJ IVP PRN (06:07)
[2018-01-21] MEDS: ONDANSETRON 4 MG/2 ML VIAL IVP PRN (06:12)
[2018-01-21 07:51] VITALS: BP 102/93
[2018-01-21] MEDS ORDERED: FAMOTIDINE 20 MG TAB PO SCH (09:00)
--- NOTE | 2018-01-21 09:27 | SOAPPROG ---
SOAP Progress Note Assessment/Plan: 01/21/18 09:22 POD#1 Assessment: Doing well. Pain resolved. Stool evaluation still pending ( suspect negative) Plan: Discharge today Subjective: I feel much better Objective: Vital Signs Temp Pulse Resp BP Pulse Ox 36.8 C 65 16 102/93 H 98 01/21/18 07:42 01/21/18 07:42 01/21/18 07:42 01/21/18 07:42 01/21/18 07:42 01/20/18 01/21/18 01/22/18 05:59 05:59 05:59 Intake Total 2130 Output Total 5 Balance 2124 - Time Spent With Patient Time Spent With Patient: 15 - Pending Discharge Pending Discharge Within 24 Hours: Yes Pending Discharge Date: 01/21/18 Pending Discharge Time: 11:00 Physical Exam - Physical Exam General Appearance: WD/WN, alert, no apparent distress Neck: full range of motion, supple Respiratory: chest non-tender, lungs clear, normal breath sounds Cardiac/Chest: regular rate, rhythm Abdomen: normal bowel sounds, non-tender, soft, other (incision clean and dry) Pelvic Exam: deferred Rectal: deferred Back: Normal inspection Skin: normal color, warm/dry Neuro/Psych: no motor/sensory deficits, alert, normal mood/affect, oriented x 3 ICD10 Worksheet Patient Problems: Problems Problem Status Onset Acute appendicitis Acute
--- NOTE | 2018-01-21 11:04 | ASMTCMCOM ---
CM Note CM Note Notes: Pt to DC today with no needs. Date Signed: 01/21/2018 11:04 AM Electronically Signed By:Marsha Guallpa LCSW
--- NOTE | 2018-01-21 11:08 | ASMTLACE ---
LACE Length of stay for Answers: Less than 1 day current admission Acuity / Level of Answers: No Care: Did the patient have an inpatient admission? Comorbidities - select Answers: Other Notes: GERD all that apply # of Emergency department Answers: 1-2 visits in the last 6 months Score: 2 Date Signed: 01/21/2018 11:07 AM Electronically Signed By:Marsha Guallpa LCSW
--- NOTE | 2018-01-21 12:05 | GDS ---
[f rep st] DISCHARGE SUMMARY DISCHARGE DIAGNOSIS: Acute appendicitis. PROCEDURE PERFORMED: Laparoscopic appendectomy. ADDITIONAL DIAGNOSES: Adhesions of omentum to anterior abdominal wall scar. CONDITION ON DISCHARGE: Improved. DISPOSITION: Home. DIET: Unrestricted, although I recommended she avoid constipating foods, such as bananas, rice, appl esauce, and cheese, and she also will avoid foods that promote reflux, such as alcohol, fatty foods, chocolate, and coffee. For medications, she will use Tylenol 1000 mg every 8 hours and Toradol 10 mg every 6. When the Toradol is complete, she will switch to Motrin 200 mg every 6. She will use Dila udid 2-4 mg every 4 hours for severe pain. Ten tabs were dispensed. ACTIVITY: Activity restriction: She is to lift less than 10 pounds. She is to shower only. She is to take a multivitamin with zinc, copper and C. HOSPITAL COURSE: The patient was admitted and taken to the operating room. As part of her ER evalua tion, she did have a stool sent for enteric pathogens, which was negative. She is set for discharge at this time, and she will follow up with Dr. Sanket Beckwith' office in 10 days. /[id number]/MODL
== END 2018-01-21 12:19 | disposition home or self-care (01) ==
LOC: F1N 18:25
PROVIDERS: ADMIT Surgery; ATTEND Surgery
PROC: 0DTJ4ZZ Resection of Appendix, Percutaneous Endoscopic Approach (ICD-10-PCS; principal; 2018-01-20 16:00)
DX: K35.80 Unspecified acute appendicitis (principal); N83.291 Other ovarian cyst, right side; K21.9 Gastro-esophageal reflux disease without esophagitis; F17.210 Nicotine dependence, cigarettes, uncomplicated; F12.10 Cannabis abuse, uncomplicated; Z88.2 Allergy status to sulfonamides; Z98.891 History of uterine scar from previous surgery
CPT/HCPCS: 44970; 74177; 96361; 96365; 96368; 96375; 99285; G0378; J0696; J1100; J1170; J1644; J1885; J2250; J2405; J2704; J3010; Q9967

== ENCOUNTER 2018-04-11 | Emergency (ER) | payer MEDICAID | END 2018-04-11 15:48 | disposition home or self-care (01) | PROC: 0DJD8ZZ Inspection of Lower Intestinal Tract, Via Natural or Artificial Opening Endoscopic (ICD-10-PCS; principal; 2018-04-11) | DX: K92.1 Melena (principal) ==

== ENCOUNTER 2018-11-09 21:44 | Emergency (ER) | payer MEDICAID ==
--- NOTE | 2018-11-09 21:52 | EDPHY ---
H & P Source: Patient Exam Limitations: No limitations - Personal History Tetanus Vaccine Date: < 10 YEARS - Medical/Surgical History Hx Asthma: No Hx Chronic Respiratory Disease: No Hx Diabetes: No Hx Cardiac Disease: No Hx Renal Disease: No Hx Cirrhosis: No Hx Alcoholism: No Hx HIV/AIDS: No Hx Splenectomy or Spleen Trauma: No Other PMH: ANXIETY, UTI'S, , APPY - Social History Smoking Status: Never smoked Time Seen by Provider: 11/09/18 21:52 HPI/ROS: HPI: This is a 28-year-old male who presents with Chief Complaint: Rash to both lower legs Location: Lower ankles and legs Quality: Rash Duration: 1-2 weeks Signs and Symptoms: no fever, no nausea, no vomiting, no diarrhea, no urinary symptoms, no chest pain, no shortness of breath, no wheezing, no cough, no sore throat, no neck stiffness, no joint pain, no swollen glands, no ear pain, no rash, no easy bleeding, no easy bruising Timing: Slowly worsening Severity: Moderate Context: 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 She reports that is extremely itchy. She does have a history of sensitive and dry skin. She reports that she has periodontal disease and her gums bleed easily. She does have a primary care provider in [place], [place] where she lives. She denies any recent lower extremity edema. No history of environmental or food allergies. Modifying Factors: She has tried no [id number] medications Comment: ROS: A comprehensive 10 system review of systems is otherwise negative aside from elements mentioned in the history of present illness. 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 Lives in [place], [place]. Family history noncontributory. CONSTITUTIONAL: Overweight, extremely well-appearing young adult white female, awake and alert, no obvious distress HEENT: Atraumatic and normocephalic, PERRL, EOMI. Nares patent; no rhinorrhea; no nasal mucosal edema. Tympanic membranes clear. Oropharynx clear, no exudate and moist pink mucosa. Airway patent. No lymphadenopathy. No meningismus. Cardiovascular: Normal S1/S2, regular rate, regular rhythm, without murmur rub or gallop. PULMONARY/CHEST: Symmetrical and nontender. Clear to auscultation bilaterally. Good air movement. No accessory muscle usage. ABDOMEN: Soft, nondistended, nontender, no rebound, no guarding, no peritoneal signs, no masses or organomegaly. No CVAT. EXTREMITIES: 2/2 pulses, strength 5/5, no deformities, no clubbing, no cyanosis or edema. Negative Homans sign. No palpable cords. No varicose veins. NEUROLOGICAL: no focal neuro deficits. GCS 15. SKIN: Warm and dry, scaly; annular; light pink scattered rash on the top of both her feet and around her lower ankles; no vesicles; no petechiae; does not castillo with palpation. Good capillary refill. (Rody Blancas) Constitutional: Initial Vital Signs Temperature (C) 36.6 C 11/09/18 21:56 Heart Rate 85 11/09/18 21:56 Respiratory Rate 18 11/09/18 21:56 Blood Pressure 150/104 H 11/09/18 21:56 O2 Sat (%) 95 11/09/18 21:56 O2 Delivery Mode Room Air Allergies/Adverse Reactions: Sulfa (Sulfonamide Antibiotics) Allergy (Mild, Verified 11/09/18 21:56) Rash Home Medications: Medication Instructions Recorded Hydrocortisone 0.2% Valerate 1 esperanza TP BID 7 Days #30 g 11/09/18 [Westcort 0.2% Cream (*)] hydrOXYzine HCL [hydrOXYzine HCL 25 mg PO Q6 PRN #12 tab 11/09/18 (RX)] Medical Decision Making ED Course/Re-evaluation: Vital signs reviewed and show mildly elevated blood pressure. CBC ordered and shows no signs of leukocytosis, anemia, platelet dysfunction. Suspect eczema versus psoriasis Given RX topical medium potency steroid along with hydroxyzine prescription No signs of neurovascular compromise/tenting of skin/compartment syndrome/ extremities and joints examined above and below area of concern and are neurovascularly intact/cellulitis. This patient was seen under the supervision of my secondary supervising physician. I evaluated care for this patient independently. (Rody Blancas) PHYSICIAN DOCUMENTATION: The patient was evaluated and managed by the Physician Experimental Welder. My co- signature indicates that I have reviewed this chart and I agree with the findings and plan of care as documented. I am the secondary supervising physician. (Ekaterina Kingston) Differential Diagnosis: Differential diagnosis includes but is not limited to candidiasis, bollus pemphigoid, eczema, psoriasis, ITP, bacterial skin infection. (Rody Blancas) - Data Points Laboratory Results: Laboratory Results 11/09/18 22:08 11/09/18 22:08 WBC 8.46 10^3/uL 10^3/uL (3.80-9.50) RBC 5.14 10^6/uL 10^6/uL (4.18-5.33) Hgb 16.2 g/dL g/dL (12.6-16.3) Hct 46.6 % % (38.0-47.0) MCV 90.7 fL fL (81.5-99.8) MCH 31.5 pg pg (27.9-34.1) MCHC 34.8 g/dL g/dL (32.4-36.7) RDW 12.8 % % (11.5-15.2) Plt Count 258 10^3/uL 10^3/uL (150-400) MPV 10.3 fL fL (8.7-11.7) Neut % (Auto) 68.4 % % (39.3-74.2) Lymph % (Auto) 21.0 % % (15.0-45.0) [place] % (Auto) 5.9 % % (4.5-13.0) Eos % (Auto) 3.3 % % (0.6-7.6) Baso % (Auto) 1.2 % % (0.3-1.7) Nucleat RBC Rel Count 0.0 % % (0.0-0.2) Absolute Neuts (auto) 5.78 10^3/uL 10^3/uL (1.70-6.50) Absolute Lymphs (auto) 1.78 10^3/uL 10^3/uL (1.00-3.00) Absolute Monos (auto) 0.50 10^3/uL 10^3/uL (0.30-0.80) Absolute Eos (auto) 0.28 10^3/uL 10^3/uL (0.03-0.40) Absolute Basos (auto) 0.10 10^3/uL 10^3/uL (0.02-0.10) Absolute Nucleated RBC 0.00 10^3/uL 10^3/uL (0-0.01) Immature Gran % 0.2 % % (0.0-1.1) Immature Gran # 0.02 10^3/uL 10^3/uL (0.00-0.10) Departure - Departure Disposition: Home, Routine, Self-Care Clinical Impression: Psoriasis (a type of skin inflammation) Condition: Good Instructions: Psoriasis (ED) Additional Instructions: Avoid overheating or hot showers as this can cause increased redness and itchiness of skin. Apply topical steroid ointment twice daily for the next 7-14 days. Take hydroxyzine every 6-8 hours as needed for itching. Follow-up with primary care provider/dermatology in the next 1-2 weeks. Referrals: KRISTIAN BUENO DR [Other] - As per Instructions Anum Cruz MD [Medical Doctor] - As per Instructions Prescriptions: Hydrocortisone 0.2% Valerate [Westcort 0.2% Cream (*)] 1 esperanza TP BID 7 Days #30 g hydrOXYzine HCL [hydrOXYzine HCL (RX)] 25 mg PO Q6 PRN #12 tab PRN Reason: Itching
[2018-11-09 22:00] VITALS: BP 150/104
[2018-11-09 22:17] LABS: PLATELET COUNT 258 10^3/uL (150-400)
== END 2018-11-09 22:52 | disposition home or self-care (01) ==
DX: L40.9 Psoriasis, unspecified (principal)

== ENCOUNTER 2018-12-12 13:57 | Emergency (ER) | payer MEDICAID ==
--- NOTE | 2018-12-12 14:06 | EDPHY ---
H & P Time Seen by Provider: 12/12/18 14:06 HPI/ROS: CHIEF COMPLAINT: Severe nausea and vomiting HISTORY OF PRESENT ILLNESS: Patient was out at a bar last night and remembers the iron pellet tester calling her boyfriend to take her home but then does not remember anything until she woke up at 7:30 a.m. This morning. She felt hung over and she had a headache but she went to work and then at 9 or 930 she when outside to smoke a bowl because she was not feeling wellness started having intractable nausea and vomiting afterwards. Associated with a little bit of stomach cramping but no pain, no fever or chills. No hematemesis or coffee-ground emesis. Associated with feeling thirsty. Not better or worse with anything. REVIEW OF SYSTEMS: Eye: no change in vision ENT: no sore throat Cardiac: no chest pain or syncope Pulmonary: no cough or SOB Abdomen: HPI Musculoskeletal: no back pain Skin: Bruise on her right thigh unknown how Neuro: no headache Constitutional: no fever : no urinary symptoms, denies A comprehensive 10 point review of systems is otherwise negative aside from elements mentioned in the history of present illness. 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 General Appearance: Alert and conversant, cooperative. Eyes: No scleral icterus. ENT, Mouth: Dry mucous membranes. Respiratory: Normal respiratory effort, breath sounds equal, lungs are clear to auscultation. Cardiovascular: Regular rate and rhythm. Gastrointestinal: Abdomen is soft and non tender. No rebound or guarding. Neurological: Alert, face symmetric, normal motor and sensory in extremities. Skin: 10 cm bruise on the right thigh with small abrasion, nonsuturable. Compartments soft in right thigh. Musculoskeletal: No extremity or spinal bony tenderness. Psychiatric: Not agitated. Emergency Department course/MDM: Presents with nausea and vomiting, patient was concerned she might have been slipped a drug last night. Marijuana today was from the same batch she has used previously, unlikely to be that. Discussed with the patient could be related to alcohol, gastroenteritis viral or food related, possibly a drug last night but that definitive diagnosis not likely possible in the ED. Plan for IV fluids and antiemetics, patient is agreeable with the plan. No testing. Right thigh bruise likely from unknown injury last night. No known assault. Does not have evidence here of compartment syndrome or bony injury. 1601: Feels better, wants to go home, no further vomiting, stable for discharge. Smoking Status: Never smoked Constitutional: Initial Vital Signs Temperature (C) 36.4 C 12/12/18 13:57 Heart Rate 77 12/12/18 13:57 Respiratory Rate 16 12/12/18 13:57 Blood Pressure 152/101 H 12/12/18 13:57 O2 Sat (%) 98 12/12/18 13:57 O2 Delivery Mode Room Air Allergies/Adverse Reactions: Sulfa (Sulfonamide Antibiotics) Allergy (Mild, Verified 11/09/18 21:56) Rash Home Medications: Medication Instructions Recorded Hydrocortisone 0.2% Valerate 1 esperanza TP BID 7 Days #30 g 11/09/18 [Westcort 0.2% Cream (*)] hydrOXYzine HCL [hydrOXYzine HCL 25 mg PO Q6 PRN #12 tab 11/09/18 (RX)] Ondansetron Odt [Zofran Odt] 4 mg PO Q4PRN #6 tab 12/12/18 Medical Decision Making - Data Points Medications Given: Discontinued Medications Sodium Chloride (Ns) 1,000 mls @ 0 mls/hr IV EDNOW ONE; Wide Open PRN Reason: Protocol Stop: 12/12/18 14:15 Last Admin: 12/12/18 14:16 Dose: 1,000 mls Sodium Chloride (Ns) 1,000 mls @ 0 mls/hr IV EDNOW ONE; Wide Open PRN Reason: Protocol Stop: 12/12/18 14:15 Last Admin: 12/12/18 14:16 Dose: 1,000 mls Ondansetron HCl (Zofran) 4 mg IVP EDNOW ONE Stop: 12/12/18 14:15 Last Admin: 12/12/18 14:16 Dose: 4 mg Departure - Departure Disposition: Home, Routine, Self-Care Clinical Impression: Nausea and vomiting Qualifiers: Vomiting type: unspecified Vomiting Intractability: non-intractable Qualified Code(s): R11.2 - Nausea with vomiting, unspecified Condition: Good Instructions: Acute Nausea and Vomiting (ED) Referrals: Billie Randall MD [Medical Doctor] - As per Instructions Prescriptions: Ondansetron Odt [Zofran Odt] 4 mg PO Q4PRN #6 tab
[2018-12-12] MEDS ORDERED: ONDANSETRON 4 MG/2 ML VIAL ONE (14:11)
[2018-12-12] MEDS ORDERED: ONDANSETRON 4 MG/2 ML VIAL IVP ONE (14:14)
[2018-12-12] MEDS ORDERED: NS 1,000 ML IV ONE ×2 (14:14)
[2018-12-12 16:07] VITALS: BP 123/91
== END 2018-12-12 16:07 | disposition home or self-care (01) ==
DX: R11.2 Nausea with vomiting, unspecified (principal); R51 Headache; E86.9 Volume depletion, unspecified; S70.311A Abrasion, right thigh, initial encounter; X58.XXXA Exposure to other specified factors, initial encounter
CPT/HCPCS: 96374; J2405

== ENCOUNTER 2019-02-16 22:34 | Emergency (ER) | payer MEDICAID | END 2019-02-16 23:35 | disposition home or self-care (01) ==